=== PATIENT | male | born 1990 | race Caucasian/White ===

== ENCOUNTER 2017-02-13 19:14 | Emergency (ER) | payer SELFPAY ==
[2017-02-13 19:17] VITALS: TEMP 98.2
[2017-02-13] MEDS ORDERED: Sodium Chloride 0.9% 1,000 ML IV ONE (19:34)
--- NOTE | 2017-02-13 19:34 | C.PDOC ---
History Of Present Illness Patient presents to the ER with a complaint of sudden onset of right flank pain radiating to the groin that began this morning. Denies fever, chills, nausea, vomiting, or urinary symptoms. Time Seen by Provider: 02/13/17 19:34 Chief Complaint (Nursing): Abdominal Pain History Per: Patient History/Exam Limitations: no limitations Onset/Duration Of Symptoms: Hrs Current Symptoms Are (Timing): Still Present Severity: Moderate Pain Scale Rating Of: 4 Location Of Pain/Discomfort: Other (Right flank) Radiation Of Pain To:: Other (groin) Quality Of Discomfort: Unable To Describe Associated Symptoms: denies: Fever, Chills, Nausea, Vomiting, Urinary Symptoms Exacerbating Factors: None Alleviating Factors: None Recent travel outside of the [place]: No Past Medical History Reviewed: Historical Data, Nursing Documentation, Vital Signs Vital Signs: Last Vital Signs Temp 98.2 F 02/13/17 19:17 Pulse 90 02/13/17 19:17 Resp 18 02/13/17 19:17 BP 155/80 H 02/13/17 19:17 Pulse Ox 98 02/13/17 19:54 - Medical History PMH: No Chronic Diseases Surgical History: No Surg Hx Family History: States: Unknown Family Hx - Social History Hx Alcohol Use: No Hx Substance Use: No - Immunization History Hx Tetanus Toxoid Vaccination: Yes Hx Influenza Vaccination: No Hx Pneumococcal Vaccination: No Review Of Systems Constitutional: Negative for: Fever, Chills Gastrointestinal: Negative for: Nausea, Vomiting Genitourinary: Negative for: Dysuria, Hematuria, Penile Pain Musculoskeletal: Positive for: Back Pain (Right flank) Physical Exam - Physical Exam Appears: Non-toxic Skin: Warm, Dry Eye(s): bilateral: Normal Inspection Oral Mucosa: Moist Neck: Supple Chest: Symmetrical, No Tenderness Cardiovascular: Rhythm Regular, No Murmur Respiratory: No Rales, No Rhonchi, No Wheezing Gastrointestinal/Abdominal: Soft, No Tenderness Back: CVA Tenderness (mild right), Other (Right flank tenderness) Extremity: No Tenderness Extremity: Bilateral: Atraumatic Neurological/Psych: Oriented x3, Normal Speech, Normal Cognition Gait: Steady ED Course And Treatment - Laboratory Results Result Diagrams: 02/13/17 19:43 02/13/17 19:43 O2 Sat by Pulse Oximetry: 98 (Room air) Pulse Ox Interpretation: Normal Progress Note: Blood work ordered. Pepcid, toradol, and IV fluids administered. Reevaluation Time: 20:54 Reassessment Condition: Improved Disposition Counseled Patient/Family Regarding: Studies Performed, Diagnosis, Need For Followup, Rx Given - Disposition Referrals: Alphonse Rob MD [Staff Provider] - Disposition: HOME/ ROUTINE Disposition Time: 19:34 Condition: FAIR Prescriptions: Ibuprofen [Motrin Tab] 800 mg PO TID PRN #20 tab PRN Reason: Pain, Moderate (4-7) Tamsulosin [Flomax] 0.4 mg PO DAILY #15 cap Instructions: Renal Colic (GEN), Kidney Stones (DC) Forms: [employer] (Armenian) - Clinical Impression Clinical Impression: Abdominal colic, Renal colic on right side, Kidney stone on right side - Scribe Statement The provider has reviewed the documentation as recorded by the Scribe Antonio Reddy All medical record entries made by the Scribe were at my direction and personally dictated by me. I have reviewed the chart and agree that the record accurately reflects my personal performance of the history, physical exam, medical decision making, and the department course for this patient. I have also personally directed, reviewed, and agree with the discharge instructions and disposition.
[2017-02-13] MEDS ORDERED: Sodium Chloride 0.9% 1,000 ML ONE (19:44)
[2017-02-13 19:50] LABS: BASO # 0.1 K/uL (0.0-0.2); BASO % 0.9 % (0.0-2.0); EOS # 0.3 K/uL (0.0-0.7); EOS % 3.4 % (0.0-4.0); HEMATOCRIT 46.1 % (35.0-51.0); LYMPH # 3.8 K/uL (1.0-4.3); LYMPH % 43.2 % (20.0-40.0); MEAN CELL VOLUME 87.1 fL (80.0-94.0); MEAN CORPUSCULAR HEMOGLOBIN 29.6 pg (27.0-31.0); MEAN CORPUSCULAR HGB CONC 33.9 g/dL (33.0-37.0); MEAN PLATELET VOLUME 8.6 fL (7.2-11.7); MONO # 0.6 K/uL (0.0-0.8); MONO % 6.8 % (0.0-10.0); RED CELL DISTRIBUTION WIDTH 13.1 % (11.5-14.5); WHITE BLOOD COUNT 8.8 K/uL (4.8-10.8)
[2017-02-13 19:52] LABS: RBC URINE 9 /hpf (0-3); URINE BILIRUBIN NEGATIVE (NEGATIVE); URINE BLOOD 1+ (NEGATIVE); URINE COLOR Yellow (YELLOW); URINE GLUCOSE (UA) NORMAL (Normal); URINE KETONE NEGATIVE (NEGATIVE); URINE LEUKOCYTE ESTERASE NEG Leu/uL (Negative); URINE PROTEIN NEGATIVE (NEGATIVE); URINE UROBILINOGEN NORMAL mg/dL (0.2-1.0); WBC URINE < 1 /hpf (0-5)
[2017-02-13 19:54] LABS: CHLORIDE 98 mmol/L (98-107)
[2017-02-13 19:55] LABS: POTASSIUM 3.4 mmol/L (3.6-5.2); SODIUM 140 mmol/L (132-148)
[2017-02-13 19:57] LABS: ALB/GLOB RATIO 1.3 (1.0-2.1); ALKALINE PHOSPHATASE 93 U/L (38-126); ALT/SGPT 31 U/L (21-72); AST/SGOT 27 U/L (17-59); BILIRUBIN,TOTAL 0.5 mg/dL (0.2-1.3); BLOOD UREA NITROGEN 11 mg/dL (9-20); CARBON DIOXIDE 27 mmol/L (22-30); GFR AFRICAN-AMERICAN > 60; GLUCOSE,RANDOM 105 mg/dL (75-110); TOTAL PROTEIN 7.3 g/dL (6.3-8.3)
[2017-02-13 19:58] LABS: CALCIUM 8.8 mg/dl (8.6-10.4)
[2017-02-13 21:11] VITALS: BP 135/75; PULSE 75; RESP 17; O2SAT 99
--- NOTE | 2017-02-14 08:40 | CT ---
PROCEDURE: CT Abdomen and Pelvis without intravenous contrast HISTORY: Right flank pain COMPARISON: None. TECHNIQUE: Axial computed tomographic images of the abdomen and pelvis were performed without intravenous contrast. Subsequently, sagittal and coronal reformatted images were created and reviewed. Radiation dose: Total exam DLP = 383 mGy-cm. This CT exam was performed using one or more of the following dose reduction techniques: Automated exposure control, adjustment of the mA and/or kV according to patient size, and/or use of iterative reconstruction technique. FINDINGS: LOWER THORAX: Mild nodular consolidation at the medial aspect of the right middle lobe. LIVER: Unremarkable. No gross lesion or ductal dilatation. GALLBLADDER AND BILE DUCTS: Unremarkable. PANCREAS: Unremarkable. No gross lesion or ductal dilatation. SPLEEN: Unremarkable. ADRENALS: Unremarkable. No mass. KIDNEYS AND URETERS: 3 millimeter obstructing calculus at the right ureteropelvic junction. Nonobstructing left renal calculi. For example, in the midpole, there is a 6 millimeter nonobstructive upper to mid pole calculus. VASCULATURE: Unremarkable. No aortic aneurysm. BOWEL: Unremarkable. No obstruction. No gross mural thickening. Stomach is distended with ingested material. Mild diverticulosis. APPENDIX: Unremarkable. Normal appendix. PERITONEUM: Unremarkable. No free fluid. No free air. LYMPH NODES: Unremarkable. No enlarged lymph nodes. BLADDER: Under distended and or mildly thickened urinary bladder. REPRODUCTIVE: Unremarkable. BONES: No acute fracture. OTHER FINDINGS: None. IMPRESSION: 3 millimeter obstructing calculus at the right ureteropelvic junction. Additional findings as above. These findings were preliminarily reported at 8:49 p.m. on 02/13/[address] Fredi Mas from [facility].
== END 2017-02-13 21:12 | disposition home or self-care (01) ==
LOC: C.ER 19:14
DX: N20.0 Calculus of kidney (principal); R10.84 Generalized abdominal pain
CPT/HCPCS: 74176; 80053; 81001; 83690; 85025; 96361; 96374; 96375; 99284; J1885; J7040

== ENCOUNTER 2017-10-26 08:58 | Emergency (ER) | payer OTHER ==
[2017-10-26 09:13] VITALS: RESP 18
--- NOTE | 2017-10-26 09:41 | C.PDOC ---
History Of Present Illness 27-YEAR-OLD MALE, PRESENTS TO THE EMERGENCY DEPARTMENT WITH COMPLAINTS OF NEW ONSET BACK PAIN SINCE YEST. INITIALLY B/L MID BACK, NOW LOWER R BACK. NO ASSOC W MOVEMENT/POSITION, INTERMIT. NO TRAUMA. DENIES UTI SX. +NV. NO ABD PAIN, DIARRHEA. HO KIDNEY STONES. S/P TYLENOL EXAM MILD DIST NONTOXIC HEENT NEG ABD NEG BACK AROM WO DIFF NO CVAT NO SPASM REMAINDER NEG Time Seen by Provider: 10/26/17 09:22 Chief Complaint (Nursing): Male Genitourinary History Per: Patient History/Exam Limitations: no limitations Past Medical History Reviewed: Historical Data, Nursing Documentation, Vital Signs Vital Signs: Last Vital Signs Temp 98.2 F 10/26/17 11:45 Pulse 99 H 10/26/17 11:45 Resp 18 10/26/17 11:45 BP 109/68 10/26/17 11:45 Pulse Ox 95 10/26/17 11:45 - Medical History PMH: Kidney Stones Family History: States: No Known Family Hx - Social History Hx Alcohol Use: No Hx Substance Use: No - Immunization History Hx Tetanus Toxoid Vaccination: Yes Hx Influenza Vaccination: No Hx Pneumococcal Vaccination: No Review Of Systems Constitutional: Negative for: Fever, Chills Respiratory: Negative for: Shortness of Breath Gastrointestinal: Positive for: Nausea, Vomiting Musculoskeletal: Positive for: Back Pain Physical Exam - Physical Exam Appears: Non-toxic, No Acute Distress Skin: Normal Color, Warm, Dry, No Rash Head: Normacephalic Eye(s): bilateral: PERRL Nose: Normal Oral Mucosa: Moist Lips: Normal Appearing Neck: Normal ROM Chest: Symmetrical Cardiovascular: Rhythm Regular, No Murmur Respiratory: Normal Breath Sounds, No Accessory Muscle Use Gastrointestinal/Abdominal: Soft, No Tenderness Back: Other (BACK AROM WO DIFF NO CVAT NO SPASM) Extremity: Normal ROM, No Deformity, No Swelling Neurological/Psych: Oriented x3, Normal Speech ED Course And Treatment - Laboratory Results Result Diagrams: 10/26/17 10:11 10/26/17 10:11 O2 Sat by Pulse Oximetry: 98 Pulse Ox Interpretation: Normal Reevaluation Time: 11:34 Reassessment Condition: Improved Disposition Counseled Patient/Family Regarding: Studies Performed, Diagnosis, Need For Followup, Rx Given - Disposition Referrals: [facility] [Outside] [facility] [Outside] Disposition: HOME/ ROUTINE Disposition Time: 11:34 Condition: IMPROVED Prescriptions: Ibuprofen [Motrin] 600 mg PO Q6 #30 tab Ondansetron [Zofran Odt] 4 mg PO TID PRN #9 odt PRN Reason: Nausea/Vomiting Tamsulosin [Flomax] 0.4 mg PO DAILY #14 cap Instructions: Renal Colic (DC) Forms: [employer] (Beninese), Work Excuse - Clinical Impression Clinical Impression: Renal colic on right side - Scribe Statement The provider has reviewed the documentation as recorded by the Scribe (Dominik Shields) All medical record entries made by the Scribe were at my direction and personally dictated by me. I have reviewed the chart and agree that the record accurately reflects my personal performance of the history, physical exam, medical decision making, and the department course for this patient. I have also personally directed, reviewed, and agree with the discharge instructions and disposition.
[2017-10-26] MEDS ORDERED: Sodium Chloride 0.9% 1,000 ML IV STA (09:43)
[2017-10-26] MEDS ORDERED: Lidocaine 116 MG in Sodium Chloride 0.9% 100 ML IV STA (09:43)
[2017-10-26] MEDS ORDERED: Sodium Chloride 0.9% 1,000 ML ONE (09:59)
[2017-10-26 10:17] LABS: BASO % 0.3 % (0.0-2.0); EOS # 0.1 K/uL (0.0-0.7); HEMOGLOBIN 15.8 g/dL (12.0-18.0); LYMPH % 16.1 % (20.0-40.0); MEAN CELL VOLUME 85.7 fL (80.0-94.0); MEAN CORPUSCULAR HEMOGLOBIN 29.8 pg (27.0-31.0); MEAN CORPUSCULAR HGB CONC 34.8 g/dL (33.0-37.0); MEAN PLATELET VOLUME 8.4 fL (7.2-11.7); MONO # 0.6 K/uL (0.0-0.8); MONO % 8.8 % (0.0-10.0); NEUT # 4.8 K/uL (1.8-7.0); NEUT % 73.8 % (50.0-75.0); NRBC % 0.1 % (0.0-2.0); RBC 5.3 Mil/uL (4.40-5.90); RED CELL DISTRIBUTION WIDTH 12.7 % (11.5-14.5); WHITE BLOOD COUNT 6.5 K/uL (4.8-10.8)
[2017-10-26 10:23] LABS: URINE BILIRUBIN NEGATIVE (NEGATIVE); URINE BLOOD NEGATIVE (NEGATIVE); URINE CLARITY Clear (Clear); URINE COLOR Yellow (YELLOW); URINE GLUCOSE (UA) NORMAL (Normal); URINE LEUKOCYTE ESTERASE NEG Leu/uL (Negative); URINE PROTEIN NEGATIVE (NEGATIVE); URINE UROBILINOGEN NORMAL mg/dL (0.2-1.0)
[2017-10-26 10:29] LABS: BLOOD UREA NITROGEN 9 mg/dL (9-20); CALCIUM 8.8 mg/dl (8.6-10.4); GFR AFRICAN-AMERICAN > 60; GFR NON-AFRICAN AMERICAN > 60
--- NOTE | 2017-10-26 11:25 | CT ---
PROCEDURE: CT Abdomen and Pelvis without intravenous contrast HISTORY: R FLANK PAIN COMPARISON: 02/13/2017 TECHNIQUE: Without contrast.. Contrast Dose: 0 Radiation dose: Total exam DLP = Total exam DLP = 365.48 mGy-cm. This CT exam was performed using one or more of the following dose reduction techniques: Automated exposure control, adjustment of the mA and/or kV according to patient size, and/or use of iterative reconstruction technique. FINDINGS: LOWER THORAX: Unremarkable. LIVER: Unremarkable. No gross lesion or ductal dilatation. GALLBLADDER AND BILE DUCTS: Unremarkable. PANCREAS: Unremarkable. No gross lesion or ductal dilatation. SPLEEN: Unremarkable. ADRENALS: Unremarkable. No mass. KIDNEYS AND URETERS: Unremarkable. No hydronephrosis. No solid mass. VASCULATURE: Unremarkable. No aortic aneurysm. BOWEL: Unremarkable. No obstruction. No gross mural thickening. APPENDIX: Not identified. No secondary findings. PERITONEUM: Unremarkable. No free fluid. No free air. LYMPH NODES: Unremarkable. No enlarged lymph nodes. BLADDER: Decompressed. There is a 2 mm punctate calcifications seen within the right-sided the decompressed urinary bladder on series 3, image 157. This may reflect a recently passed urinary calculus. REPRODUCTIVE: Normal prostate BONES: No acute fracture. OTHER FINDINGS: None IMPRESSION: 2 mm calculus within the urinary bladder. This may represent a recently passed urinary calculus. No hydronephrosis. No renal or ureteral calculus identified. No additional abnormality identified.
[2017-10-26 11:46] VITALS: BP 109/68; PULSE 99; TEMP 98.2
[2017-10-26 18:49] VITALS: O2SAT 98
== END 2017-10-26 11:51 | disposition home or self-care (01) ==
LOC: C.ER 08:58
DX: N23 Unspecified renal colic (principal)
CPT/HCPCS: 74176; 80048; 81001; 85025; 87086; 96361; 96374; 99284; J1885; J7040

== ENCOUNTER 2018-01-29 18:55 | Emergency (ER) | payer OTHER ==
[2018-01-29 19:25] VITALS: BP 117/71; PULSE 76; TEMP 98.4; O2SAT 100
[2018-01-29] MEDS ORDERED: Bacitracin 500 Units/gm Oint Foilpak UD TOP ONE (19:40)
[2018-01-29] MEDS ORDERED: Bacitracin 500 Units/gm Oint Foilpak UD ONE (19:46)
--- NOTE | 2018-01-29 20:08 | C.PDOC ---
History Of Present Illness 27 year old male patient presents to the ER with c/o left thumb pain that started yesterday after it was hit by a vending machine. Patient notes some bleeding at the time of injury which has now improved. Right hand dominant. No change of sensation. Time Seen by Provider: 01/29/18 19:30 Chief Complaint (Nursing): Finger,Hand,&Wrist History Per: Patient History/Exam Limitations: no limitations Onset/Duration Of Symptoms: Hrs Current Symptoms Are (Timing): Better Past Medical History Reviewed: Historical Data, Nursing Documentation, Vital Signs Vital Signs: Last Vital Signs Temp 98.4 F 01/29/18 19:22 Pulse 76 01/29/18 19:22 Resp 20 01/29/18 20:24 BP 117/71 01/29/18 19:22 Pulse Ox 100 01/29/18 20:49 - Medical History PMH: Kidney Stones Family History: States: Unknown Family Hx - Social History Hx Alcohol Use: No Hx Substance Use: No - Immunization History Hx Tetanus Toxoid Vaccination: Yes Hx Influenza Vaccination: No Hx Pneumococcal Vaccination: No Review Of Systems Except As Marked, All Systems Reviewed And Found Negative. Musculoskeletal: Positive for: Hand Pain (left thumb pain ) Physical Exam - Physical Exam Appears: Well, Non-toxic, No Acute Distress Skin: Normal Color, Warm, Dry Head: Atraumatic, Normacephalic Eye(s): bilateral: Normal Inspection, EOMI Nose: Normal Oral Mucosa: Moist Neck: Normal, Normal ROM, Supple Chest: Symmetrical Respiratory: No Decreased Breath Sounds, Other (speaking in full sentences) Extremity: Capillary Refill (<2 sec), Swelling (left thumb swelling with tenderness), Other ((+) Subungal hematoma, which appears to be drained.) Pulses: Left Radial: Normal, Right Radial: Normal Neurological/Psych: Oriented x3, Normal Speech, Normal Sensation, No Other ( focal deficits) Gait: Steady ED Course And Treatment O2 Sat by Pulse Oximetry: 100 (RA) Pulse Ox Interpretation: Normal - Other Rad XR left hand thumb X-Ray: Interpreted by Me, Viewed By Me Interpretation: no fracture, no dislocation. Progress Note: Impression: 27 year old male patient with left thumb pain. Plan : -- Bacitracin. -- Ibuprofen. -- XR Left hand thumb. Reassess: wound is cleansed and dressed. No active bleeding. Patient instructed to follow up with PMD in 1-2 days or return to ER if symtpoms persist or worsen. Disposition - Disposition Referrals: Duarte Diop MD [Staff Provider] - Disposition: HOME/ ROUTINE Disposition Time: 20:05 Condition: STABLE Additional Instructions: Elevate and ice it. Follow up with your doctor in 1-2 days. Return to ER if symptoms persist or worsen. Instructions: Common Finger Injuries (DC) Forms: [employer] (Prydeinig) - Clinical Impression Clinical Impression: Finger contusion, Subungual hematoma - PA / ROOM MAID / Resident Statement / has reviewed & agrees with the documentation as recorded. - Scribe Statement The provider has reviewed the documentation as recorded by the Naveed Armas Do All medical record entries made by the Scribe were at my direction and personally dictated by me. I have reviewed the chart and agree that the record accurately reflects my personal performance of the history, physical exam, medical decision making, and the department course for this patient. I have also personally directed, reviewed, and agree with the discharge instructions and disposition.
[2018-01-29 20:24] VITALS: RESP 20
--- NOTE | 2018-01-30 12:32 | RAD ---
Date of service: 01/29/2018 PROCEDURE: Left Thumb radiographs. HISTORY: trauma COMPARISON: None. TECHNIQUE: AP radiograph of the left hand, as well as spot oblique and lateral images of thumb were obtained. FINDINGS: LEFT THUMB: No acute fracture. JOINTS: Normal. SOFT TISSUES: Normal. OTHER FINDINGS: None. IMPRESSION: No demonstrated fracture or dislocation.
== END 2018-01-29 20:23 | disposition home or self-care (01) ==
LOC: C.ER 18:55
DX: S60.012A Contusion of left thumb without damage to nail, initial encounter (principal); W22.8XXA Striking against or struck by other objects, initial encounter